=== PATIENT | female | born 1950 | race African-American/Black ===

== ENCOUNTER 2023-01-07 09:06 | Day surgery (SDC) | payer MEDICARE, BC ==
[~2023-01-07] VITALS: Ht 160 cm; Wt 39.9 kg
[~2023-01-07 09:06] MED LIST: ASPI-1073 PO; BALANCED SALT IRRIG SOLN COMB1 500ML OP NR; DIOVAN PO; FEXO60TA PO; METFORMIN PO; METROPOLOL PO
[2023-01-07] MEDS ORDERED: SODIUM CHLORIDE 0.9% 1,000 ML IV SCH (09:45)
[2023-01-07] MEDS ORDERED: NEO/POLYMYX B SULF/DEXAMETH OPHTH OINT 3.5GM ONE (10:43)
[2023-01-07] MEDS ORDERED: BALANCED SALT IRRIG SOLN 15ML ONE (10:43)
[2023-01-07] MEDS ORDERED: BUPIVACAINE HCL/PF 0.75% (7.5MG/ML) 10ML ONE (10:43)
[2023-01-07] MEDS ORDERED: LIDOCAINE HCL 2%/EPINEPHRINE 1:100,000 20 ML VIAL INFIL ONE (10:43)
[2023-01-07] MEDS ORDERED: PREDNISOLONE ACETATE 1% OPHTH DROPS 5ML ONE (10:43)
[2023-01-07] MEDS ORDERED: CIPROFLOXACIN 0.3% OPHTH SOLN 2.5ML ONE (10:43)
[2023-01-07] MEDS ORDERED: TETRACAINE 0.5% OPHTH DROPS 4ML ONE (10:43)
[2023-01-07] MEDS ORDERED: HYDR-4134 PO (11:48)
[2023-01-07] MEDS ORDERED: CLOP-31 PO (11:48)
[2023-01-07] MEDS ORDERED: XALAO RIGHTEYE (11:48)
[2023-01-07] MEDS ORDERED: LOSA100T32 PO (11:48)
[2023-01-07] MEDS ORDERED: ACET-2708 MT (11:48)
[2023-01-07] MEDS ORDERED: ROSU40TA PO (11:48)
[2023-01-07] MEDS ORDERED: BRIM10DR2 RIGHTEYE (11:48)
[2023-01-07] MEDS ORDERED: CARV25TA47 PO (11:48)
[2023-01-07] MEDS ORDERED: DEXT 5%/0.9% NACL 1,000 ML IV SCH (11:50)
[2023-01-07] MEDS ORDERED: FENTANYL CITRATE/PF 50MCG/ML 2ML VIAL ONE (13:07)
[2023-01-07] MEDS ORDERED: PROPOFOL 200MG/20ML VIAL IV ONE (13:08)
[2023-01-07] MEDS ORDERED: LIDOCAINE HCL 1% 10 MG/ML 10ML VIAL ONE (13:08)
[2023-01-07] MEDS ORDERED: HYALURONATE SODIUM 10 MG/ML 0.55ML SYRINGE IO ONE (13:09)
[2023-01-07] MEDS ORDERED: MIDAZOLAM HCL 2 MG/2 ML VIAL ONE (13:23)
[2023-01-07] MEDS ORDERED: HYDRALAZINE 20MG/ML VIAL ONE (14:12)
== END 2023-01-07 16:55 | disposition home or self-care (01) ==
LOC: OR 09:06
PROVIDERS: ATTEND Ophthalmology
DX: H40.89 Other specified glaucoma (principal); I10 Essential (primary) hypertension; E11.9 Type 2 diabetes mellitus without complications; I25.10 Atherosclerotic heart disease of native coronary artery without angina pectoris; E78.00 Pure hypercholesterolemia, unspecified; F17.210 Nicotine dependence, cigarettes, uncomplicated; Z86.73 Personal history of transient ischemic attack (TIA), and cerebral infarction without residual deficits; Z79.84 Long term (current) use of oral hypoglycemic drugs; Z79.899 Other long term (current) drug therapy; Z98.890 Other specified postprocedural states; Z79.82 Long term (current) use of aspirin; Z88.2 Allergy status to sulfonamides; Z91.013 Allergy to seafood; Z88.8 Allergy status to other drugs, medicaments and biological substances; Z20.822 Contact with and (suspected) exposure to COVID-19
CPT/HCPCS: 66180; 82962; 87426; A4217; C1762; C1783; C9803; J0360; J2250; J2704; J3010; J3490; Z7610